=== PATIENT | female | born 1965 | race Caucasian/White ===

== ENCOUNTER → 2020-08-11 | Outpatient (CLI) | payer BC, OTHER ==
[~2020-08-11] MED LIST: CYMBALTA60 MG PO; IMITREX100 MG PO; MOBIC15 MG PO; NEURONTIN 300300 MG PO; NORVASC 5 MG TAB5 MG PO; RANITIDINE HCL300 M1 PO
== END ==
LOC: KOH-I 15:02
DX: M51.16 Intervertebral disc disorders with radiculopathy, lumbar region (principal); R53.1 Weakness; M51.17 Intervertebral disc disorders with radiculopathy, lumbosacral region; M48.07 Spinal stenosis, lumbosacral region; M48.061 Spinal stenosis, lumbar region without neurogenic claudication
CPT/HCPCS: 72148

== ENCOUNTER → 2021-01-15 | Outpatient (CLI) | payer BC | LOC: MAMO 15:14 | DX: Z12.31 Encounter for screening mammogram for malignant neoplasm of breast (principal) | CPT/HCPCS: 77063; 77067 ==

== ENCOUNTER → 2021-05-21 | Outpatient (CLI) | payer BC | LOC: RAD 16:32 | DX: M25.562 Pain in left knee (principal); M17.12 Unilateral primary osteoarthritis, left knee | CPT/HCPCS: 73562 ==

== ENCOUNTER → 2021-05-30 | Outpatient (CLI) | payer BC | LOC: KOH-I 08:00 | DX: M25.562 Pain in left knee (principal); M25.462 Effusion, left knee; S83.242A Other tear of medial meniscus, current injury, left knee, initial encounter; X58.XXXA Exposure to other specified factors, initial encounter; R93.6 Abnormal findings on diagnostic imaging of limbs; M94.262 Chondromalacia, left knee; M17.12 Unilateral primary osteoarthritis, left knee | CPT/HCPCS: 73721 ==

== ENCOUNTER → 2021-07-23 | Outpatient (CLI) | payer BC | LOC: LAB 16:21 → RAD 16:21 | DX: M25.551 Pain in right hip (principal); M16.0 Bilateral primary osteoarthritis of hip | CPT/HCPCS: 72170; 73502 ==

== ENCOUNTER → 2021-08-07 | Outpatient (CLI) | payer BC | LOC: EMI 13:00 | DX: M51.16 Intervertebral disc disorders with radiculopathy, lumbar region (principal); M48.061 Spinal stenosis, lumbar region without neurogenic claudication; M47.27 Other spondylosis with radiculopathy, lumbosacral region; M25.551 Pain in right hip | CPT/HCPCS: 72148 ==